=== PATIENT | female | born 2000 | race Two or more races ===

== ENCOUNTER → 2024-09-30 | Emergency (ER) | payer OTHER ==
[~2024-09-30] VITALS: Ht 154.9 cm; Wt 64.0 kg
== END | disposition home or self-care (01) ==
LOC: ER 19:09
DX: Z34.90 Encounter for supervision of normal pregnancy, unspecified, unspecified trimester (principal); Z3A.18 18 weeks gestation of pregnancy; J06.9 Acute upper respiratory infection, unspecified; J00 Acute nasopharyngitis [common cold]

== ENCOUNTER 2024-10-30 13:23 | Outpatient (CLI) | payer OTHER | END 2024-10-30 13:27 | disposition home or self-care (01) | LOC: PRENATAL 13:23 | PROVIDERS: ATTEND Obstetrics & Gynecology Maternal & Fetal Medicine | DX: O44.00 Complete placenta previa NOS or without hemorrhage, unspecified trimester (principal); Z3A.22 22 weeks gestation of pregnancy ==

== ENCOUNTER → 2025-01-08 15:30 | Outpatient (CLI) | payer OTHER | END | disposition home or self-care (01) | LOC: PRENATAL 15:30 | PROVIDERS: ATTEND Obstetrics & Gynecology Maternal & Fetal Medicine | DX: O26.849 Uterine size-date discrepancy, unspecified trimester (principal); O36.8130 Decreased fetal movements, third trimester, not applicable or unspecified; O99.019 Anemia complicating pregnancy, unspecified trimester; Z3A.32 32 weeks gestation of pregnancy ==

== ENCOUNTER 2025-02-07 14:16 | Inpatient (IN) | payer OTHER ==
[~2025-02-07] VITALS: Ht 154.9 cm; Wt 2.3 kg
[2025-02-07 13:39] VITALS: BP 118/18; BP 118/80
[2025-02-07] MEDS ORDERED: BETAMETHASONE ACETATE,SOD PHOS 30 MG/5 ML ML IM STA (14:34)
[2025-02-07] MEDS ORDERED: RINGERS SOLUTION,LACTATED 1,000 ML IV SCH (14:45)
[2025-02-07 14:58] LABS: BASO % 0.2 % (0.1-1.2); EOS # 0.19 (0.04-0.54); EOS % 2.3 % (0.7-7.0); LYMPH # 1.69 (1.18-3.74); LYMPH % 20.5 % (19.3-53.1); MEAN PLATELET VOLUME 12.40 fl (9.4-12.4); MONO # 0.61 (0.24-0.82); MONO % 7.4 % (4.7-12.5); NEUT # 5.70 (1.56-6.13); NEUT % 69.2 % (34.0-71.1); RED CELL DISTRIBUTION WIDTH 13.8 % (11.6-14.4)
[2025-02-07 15:07] LABS: URINE APPEARANCE Clear; URINE BACTERIA 55.1 uL (0.0-1933); URINE BILIRRUBIN Negative (NEGATIVE); URINE BLOOD Negative; URINE COLOR Yellow; URINE EPITHELIAL CELLS 3.9 uL (0.0-38.8); URINE GLUCOSE Negative (NEGATIVE); URINE KETONE Negative (NEGATIVE); URINE LEUKOCYTE Negative; URINE NITRATE Negative; URINE PROTEIN Negative (NEGATIVE); URINE UROBILINOGEN 0.2 E.U./dl; URINE WBC 3.5 uL (0.0-23.2)
[2025-02-07 15:14] LABS: URINE CAST 0.00 uL (0.0-1.40); URINE RBC 0.7 uL (0.0-20.8)
[2025-02-07 15:25] LABS: INR 0.96
[2025-02-07 16:00] LABS: ALT/SGPT 13.0 U/L (12-78); AST/SGOT 13.0 U/L (15-37); BILIRUBIN TOTAL 0.33 mg/dL (0.3-1.2); BUN CREA RATIO 14.0 (7.0-25.0); CREATININE SERUM 0.66 mg/dL (0.55-1.02); GFR 110.98; GLOBULINA 3.7 G/DL (2.4-3.5); GLUCOSE FASTING 77.0 mg/dL (65-100); OSMOLALITY SERUM 281.0 MOSM/KG (275-295)
[2025-02-07 19:48] VITALS: BP 106/67; BP 125/74
[2025-02-07 23:20] VITALS: BP 93/53; O2SAT 98
[2025-02-08 03:40] VITALS: BP 108/62
[2025-02-08] MEDS ORDERED: ERYTHROMYCIN BASE OPHT 1GM EACH TUBE OP ONE (05:23)
[2025-02-08] MEDS ORDERED: OXYTOCIN 10 UNITS/ML VIAL ONE ×2 (05:23→10:29)
[2025-02-08] MEDS ORDERED: CEFOXITIN SODIUM 2,000 MG VIAL IV SCH (05:30)
[2025-02-08] MEDS ORDERED: NAPROXEN 500 MG TABLET PO PRN (08:30)
[2025-02-08] MEDS ORDERED: ONDANSETRON HCL 2 MG/ML VIAL IV PRN (08:30)
[2025-02-08] MEDS ORDERED: OXYTOCIN 1,000 ML IV SCH (08:30)
[2025-02-08] MEDS ORDERED: MORPHINE SULFATE 4 MG/ML CARTRIDGE IV PRN (08:30)
[2025-02-08] MEDS ORDERED: SIMETHICONE 125 MG CAPSULE PO SCH (09:00)
[2025-02-08 11:16] VITALS: BP 122/69
[2025-02-08 14:38] LABS: BASO % 0.1 % (0.1-1.2); EOS # 0.00 (0.04-0.54); EOS % 0.0 % (0.7-7.0); LYMPH # 1.67 (1.18-3.74); LYMPH % 9.1 % (19.3-53.1); MEAN PLATELET VOLUME 12.40 fl (9.4-12.4); MONO # 1.37 (0.24-0.82); MONO % 7.4 % (4.7-12.5); NEUT # 15.25 (1.56-6.13); NEUT % 82.6 % (34.0-71.1); RED CELL DISTRIBUTION WIDTH 13.7 % (11.6-14.4)
[2025-02-08] MEDS ORDERED: BETAMETHASONE ACETATE,SOD PHOS 30 MG/5 ML ML IM NR (14:45)
[2025-02-08] MEDS ORDERED: ACETAMINOPHEN WITH CODEINE 1 UDTAB TABLET PO PRN (18:00)
[2025-02-08 18:47] VITALS: BP 113/63
[2025-02-09] VITALS: BP 119/69
[2025-02-09 08:00] VITALS: BP 127/87
[2025-02-09] MEDS ORDERED: DOCUSATE SODIUM 100MG CAP PO NR (10:00)
[2025-02-09 16:51] VITALS: BP 100/67
[2025-02-09] MEDS ORDERED: DOCUSATE SODIUM 100MG CAP PO SCH (17:00)
[2025-02-10 00:10] VITALS: BP 124/81; O2SAT 98
[2025-02-10 08:00] VITALS: BP 120/84
[2025-02-10] MEDS ORDERED: NAPROXEN500 MG PO (13:56)
[2025-02-10] MEDS ORDERED: COLACE100 MG PO (13:56)
[2025-02-10] MEDS ORDERED: ACETAMINOPHEN-1 EAC2 PO (13:57)
== END 2025-02-10 14:59 | disposition home or self-care (01) | DRG 788 ==
LOC: LDR 14:16 → OB/GYN 14:16
PROVIDERS: ADMIT Obstetrics & Gynecology; ATTEND Obstetrics & Gynecology
PROC: 4A1HXCZ Monitoring of Products of Conception, Cardiac Rate, External Approach (ICD-10-PCS; 2025-02-07)
PROC: 10D00Z1 Extraction of Products of Conception, Low, Open Approach (ICD-10-PCS; principal; 2025-02-08 07:00)
DX: O36.8130 Decreased fetal movements, third trimester, not applicable or unspecified (principal); O36.8330 Maternal care for abnormalities of the fetal heart rate or rhythm, third trimester, not applicable or unspecified; O76 Abnormality in fetal heart rate and rhythm complicating labor and delivery; Z3A.37 37 weeks gestation of pregnancy; Z37.0 Single live birth